=== PATIENT | male | born 1960 | race Caucasian/White ===

== ENCOUNTER → 2020-11-02 | Day surgery (SDC) | payer OTHER ==
[~2020-11-02] MED LIST: ACETAMINOPHEN500 M1 PO; ALLOPURINOL300 MG PO; BUTALB-ACETAMI1 EACH PO; CALCIUM WITH V1 EAC2 PO; CLARITIN10 MG PO; COLACE100 MG PO; HYDROCHLOROTHIA25 MG PO; MEN 50 PLUS MU1 EACH PO; MIRALAX17 GM PO; MOTRIN600 MG PO; MUCINEX600 MG PO; NASONEX NAS120 PUFFS; OXY-IR 5MG5 MG PO; XTANDI40 MG PO
[2020-11-02 08:08] LABS: BASOPHIL 0.7 % (0-2); EOSINOPHIL 4.2 % (0-5); HCT 39.6 % (42.0-52.0); HGB 14.1 g/dl (13.2-18.0); LYMPHOCYTE 19.3 % (15-48); MCH 31.3 pg (25.0-31.0); MCHC 35.6 g/dL (32.0-36.0); MCV 87.8 fL (78.0-100.0); MONOCYTE 6.6 % (0-12); MPV 10.7 fL (6.0-9.5); NEUTROPHIL 68.8 % (41-80); NRBC 0; PLT 290 K/uL (150-400); RBC 4.51 M/uL (4.70-6.00); RDW 13.1 % (11.5-14.0); WBC 7.7 K/uL (4.0-10.5)
[2020-11-02 08:23] LABS: CREATININE 0.65 mg/dL (0.67-1.17); POTASSIUM 3.1 mmol/L (3.5-5.1)
== END | disposition home or self-care (01) ==
LOC: FAS 07:25
PROVIDERS: Student in an Organized Health Care Education/Training Program
DX: K60.3 Anal fistula (principal); K63.5 Polyp of colon; I10 Essential (primary) hypertension; Z20.822 Contact with and (suspected) exposure to COVID-19; Z79.899 Other long term (current) drug therapy; Z87.442 Personal history of urinary calculi; Z86.69 Personal history of other diseases of the nervous system and sense organs; Z86.39 Personal history of other endocrine, nutritional and metabolic disease; Z90.89 Acquired absence of other organs; Z87.19 Personal history of other diseases of the digestive system
CPT/HCPCS: 36415; 80048; 85025; 93005; J0690; J1170; J1644; J2250; J2704; J2710; J7120